=== PATIENT | female | born 1990 | race African-American/Black ===

== ENCOUNTER 2018-09-24 11:32 | Emergency (ER) | payer MEDICAID ==
[~2018-09-24] VITALS: Ht 165.1 cm; Wt 59.0 kg
[2018-09-24] MEDS ORDERED: KETOROLAC 60MG/2ML VIAL IM ONE (12:45)
[2018-09-24 12:52] VITALS: BP 105/85
== END 2018-09-24 15:00 | disposition home or self-care (01) ==
LOC: ER 11:32
DX: M79.672 Pain in left foot (principal); W01.0XXA Fall on same level from slipping, tripping and stumbling without subsequent striking against object, initial encounter; Y93.89 Activity, other specified; Y92.89 Other specified places as the place of occurrence of the external cause; Y99.8 Other external cause status
CPT/HCPCS: 73610; 73630; 81025; 96372; 99283; J1885